=== PATIENT | female | born 1965 | race Caucasian/White ===

== ENCOUNTER 2018-05-01 06:22 | Day surgery (SDC) | payer OTHER ==
[~2018-05-01 06:22] MED LIST: BIOTIN2500 MCG PO; GLUCOSAMINE &1 EAC1 PO; MIXED TOCOTRIE1 EACH PO
[2018-05-01] MEDS ORDERED: ZITHROMAX500 MG PO (09:37)
[2018-05-01] MEDS ORDERED: TYLENOL ARTHRI650 MG PO (09:37)
== END 2018-05-01 13:10 | disposition home or self-care (01) ==
LOC: CIR.AMB 06:22 → EDBD 08:00 → CIR.AMB 08:00
DX: N87.0 Mild cervical dysplasia (principal)